=== PATIENT | male | born 1975 | race Two or more races ===

== ENCOUNTER 2025-03-26 18:14 | Emergency (ER) | payer MEDICAID, SELFPAY ==
[2025-03-26 18:19] VITALS: BP 112/73; PULSE 124; RESP 19; TEMP 37.1; O2SAT 95; BMI 31.9
[2025-03-26 18:22] VITALS: BP 109/84; PULSE 110; PULSE 120; RESP 18; O2SAT 97; BMI 28.2
--- NOTE | 2025-03-26 18:22 | PC.NURSE ---
C/O CHEST PAIN AND PALPITATIONS FOR 1 WEEK
--- NOTE | 2025-03-26 18:28 | EKG_ITS ---
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
--- NOTE | 2025-03-26 18:44 | EDNOTE_ITS ---
ED Chest Pain RME/HPI General Chief Complaint: Chest Pain Stated Complaint: CHEST PAIN/PALPITATIONS FOR 1 WEEK Time Seen by Provider: 03/26/25 18:43 Arrival date/time: 03/26/25 18:14 RME / HPI RME / HPI narrative: Dr. Espinosa?s Main ED Evaluation: 49yo male with a history of DM, HTN, anxiety, depression BIBA presents to the ED for complaints of chest pain and palpitations. Patient was seen at his PCP's office this afternoon and was sent over due to his heart rate being elevated at 145. Patient complains of left chest tightness, feeling clammy, lightheaded, and having a headache. Patient denies any shortness of breath, N/V, or any other associated symptoms. Related Data Allergies Allergy/AdvReac Type Severity Reaction Status Date / Time ibuprofen (From Motrin) Allergy Severe Rash Verified 03/26/25 18:36 Review of Systems Review of Systems Systems Reviewed: All systems reviewed, normal except as documented Past Medical History Past Medical History CARDIAC: Positive Angina, Hypercholesterolemia and Hypertension; Negative Congestive Heart Failure RESPIRATORY: Negative Chronic Obstructive Pulmonary Disease (COPD) GENITOURINARY: Negative Renal Disease ENDOCRINE: Positive Diabetes Mellitus Type 2; Negative Diabetes Mellitus Type 1 PSYCHO/SOCIAL: Positive Anxiety Social History SMOKING STATUS: Never smoker ED Exam Narrative Physical exam: GENERAL APPEARANCE: alert and oriented x 4, well-developed, well-nourished, no acute distress VITALS: All vitals were reviewed and the pulse ox is 97% on room air, which is normal according to my interpretation. HEENT: Normocephalic, atraumatic; pupils equal, round, reactive to light; EOMI; mucous membranes pink, moist; oropharynx clear NECK: Supple LUNGS: CTABL; no wheezes, no rales, no rhonchi HEART: Tachycardic, regular rhythm; normal S1, S2; no murmurs ABDOMEN: non distended; normal BS; soft, no tenderness, no guarding, no rebound; no masses, no organomegaly, no hernia BACK: no CVA tenderness EXTREMITIES: atraumatic; no edema NEUROLOGIC: awake; alert and oriented x4; cranial nerves II-XII grossly intact; no focal sensory or motor deficits PSYCHIATRIC: anxious mood and affect SKIN: warm, dry, normal color; no rashes Course Course Course Narrative: CXR is ordered for determining the etiology of chest pain. 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 NOW Care 03/26/25 19:03 Active EKG (ED ONLY) *Do not use* NOW Care 03/26/25 18:28 Completed EKG (ED ONLY) *Do not use* NOW Care 03/26/25 21:26 Completed EKG (ED Only) Stat Exams 03/26/25 18:28 Draft EKG (ED Only) Stat Exams 03/26/25 21:26 Draft XR chest 1V portable Stat Exams 03/26/25 19:03 Completed B-Type Natriuretic Peptide Stat Lab 03/26/25 19:13 Completed CBC Stat Lab 03/26/25 19:13 Completed Comprehensive Metabolic Panel Stat Lab 03/26/25 19:13 Completed Drug Screen,Urine Stat Lab 03/26/25 20:11 Completed Lipase Stat Lab 03/26/25 19:13 Completed Magnesium Stat Lab 03/26/25 19:13 Completed Partial Thromboplastin Time Stat Lab 03/26/25 19:13 Completed Prothrombin Time with INR Stat Lab 03/26/25 19:13 Completed Troponin I Stat Lab 03/26/25 19:13 Completed Troponin I Stat Lab 03/26/25 22:43 Completed UA, C/S IF [Urinalysis, C/S if Indicated] Stat Lab 03/26/25 20:11 Completed Sodium Chloride 0.9% 1000 ml [Ns] 1,000 ml Med 03/26/25 20:19 Discontinued IV 999 mls/hr Sodium Chloride 0.9% 1000 ml [Ns] 1,000 ml Med 03/26/25 20:19 Discontinued IV 999 mls/hr Vital Signs Vital signs: Vital Signs Temperature 98.8 F 03/26/25 18:19 Pulse Rate 124 H 03/26/25 18:19 Respiratory Rate 19 03/26/25 18:19 Blood Pressure 112/73 03/26/25 18:19 Pulse Oximetry (%) 95 03/26/25 18:19 Oxygen Delivery Method Room Air 03/26/25 18:19 Chest Pain MDM Narrative MDM Narrative:: Scribe Attestation: 03/26/25 - Debbi Chavez am scribing for and in the presence of Dr. Espinosa. Patient data External records reviewed:: [facility] previous records (Per chart review, patient has no previous ED visits or admissions to this facility.) and EMS form Clinical information provided by:: patient Social determinants that could affect healthcare access:: mental health Patient has the following chronic illnesses:: DM, HTN, anxiety, depression How is presenting disease/condition affected by chronic disease/condition?: exacerbated by Evaluation data The following diagnostics were reviewed and interpreted by me:: lab results, radiology exam(s) and EKG tracing(s) Lab and/or radiology exams considered but not ordered:: none Interpretation Summary: WBC 12.5, Hgb 1739, Hct 51.0, Creatinine 1.4, Mg normal, Troponin normal, BNP normal, UA unremarkable, UDS negative. Repeat Troponin normal. EKG done at 1829, sinus tachycardia, rate of 112, normal intervals, normal axis, Q waves in lead III and avF, no STEMI, according to my interpretation. Repeat EKG done at 2130, NSR, rate of 88, normal intervals, normal axis, Q waves in lead III and avF, no STEMI, according to my interpretation. [facility] Report Signed Patient: SEAN ROACH Record#: [id number] Birthdate: 1975 Age/Sex: 49 / M Location: [facility] Attending Dr: Ordering Physician: Nicole Espinosa MD Date of Service: 03/26/25 Procedure(s): XR chest 1V portable Accession Number(s): [id number] cc: Keaton Santana MD; NO PRIMARY/FAMILY,PHYSICIAN; Nicole Espinosa MD~ Examination: AP chest single view TECHNIQUE: AP portable sitting chest single view Date and time: March 26, 2025, 1920 hours INDICATIONS: Suggesting today. FINDINGS: Normal heart size The lungs are clear. The osseous structures are intact IMPRESSION: No active disease Dictated By: Keaton Santana MD Signed By: <Electronically signed by Keaton Santana MD in OV> 03/26/252113 Medications / Prescriptions Medications or Prescriptions considered but not ordered:: none Medication administrations:: Medication Administration History Discontinued Medications Sodium Chloride (Ns) 1,000 mls @ 999 mls/hr IV .Q1H1M ONE Stop: 03/26/25 21:19 Last Infusion: 03/26/25 22:01 Dose: Infused Documented By: Admin: 03/26/25 20:25 Dose: 999 mls/hr Documented By: ANDERSON Sodium Chloride (Ns) 1,000 mls @ 999 mls/hr IV .Q1H1M ONE Stop: 03/26/25 21:19 Last Infusion: 03/26/25 22:02 Dose: Infused Documented By: Admin: 03/26/25 20:41 Dose: 999 mls/hr Documented By: ANDERSON see above Consultations Consultation(s) initiated? (list below): No Diagnosis Chest Pain Differential Diagnosis: other (dehydration, sinus tachycardia, anxiety, medication side effect, arrhythmia) Most likely diagnosis given after review of the tests above:: see clinical impression below Admission Indicated Admission indicated?: not indicated Explain why admission is indicated or not indicated:: With significant improvement and no condition needing emergent intervention, there was no indication for admission. Admission Request Was there a request for admission?: No Disposition Plan Disposition Plan: Discharge Discharge Attestation Discharge Attestation: The patient and all family members were given an opportunity to ask questions and understood the discharge instructions. Discharge instructions specifically effects, indications for sooner follow up or return to the emergency department, and the expected course of current diagnosis. Patient condition: Stable Discharge Plan Prescriptions/Referrals Referrals: No Primary/Family,Physician [Primary Care Provider] - In 1 week Problem List Clinical Impression: Dehydration, mild, Sinus tachycardia Patient/Caregiver Discharge Instructions Education Materials: Understanding Tachycardia, ED Dehydration (Adult) Print Language: Luxem[place]ish
--- NOTE | 2025-03-26 19:03 | XR_ITS ---
Examination: AP chest single view TECHNIQUE: AP portable sitting chest single view Date and time: March 26, 2025, 1920 hours INDICATIONS: Suggesting today. FINDINGS: Normal heart size The lungs are clear. The osseous structures are intact IMPRESSION: No active disease
[2025-03-26 19:23] LABS: Basophils # (Auto) 0.1 Thou/mm3 (0.0-0.2); Basophils % (Auto) 1 % (0-2.5); Eosinophils # (Auto) 0.1 Thou/mm3 (0.0-0.5); Eosinophils % (Auto) 1 % (0-10); Hematocrit 51.0 % (41.0-53.0); Hemoglobin 17.9 g/dL (13.5-16.0); Immature Granulocytes Auto 0.09 Thou/mm3 (0.00-0.00); Lymphocytes # (Auto) 3.3 Thou/mm3 (1.0-4.8); Lymphocytes % (Auto) 26 % (10-50); Mean Corpuscular HGB Conc 35.1 g/dl (31.0-37.0); Mean Corpuscular Hemoglobin 30.0 pg (25.0-35.0); Mean Corpuscular Volume 86 fL (80-100); Monocytes # (Auto) 1.1 Thou/mm3 (0.0-0.8); Monocytes % (Auto) 9 % (0-12); Neutrophils # (Auto) 7.9 Thou/mm3 (1.8-7.7); Neutrophils % (Auto) 63 % (37-80); Nucleated Red Blood Cell # 0.00 Thou/mm3 (0.00-0.00); Nucleated Red Blood Cell % 0 /100 WBC (0); Platelet Count 314 Thou/mm3 (140-440); RDW Standard Deviation 39.6 fL (35.1-43.9); Red Blood Count 5.96 Miln/mm3 (4.50-5.90); White Blood Count 12.5 Thou/mm3 (3.8-10.6)
[2025-03-26 19:40] LABS: INR 1.0 (0.9-1.3); Partial Thromboplastin Time 26.1 Seconds (22.0-36.0); Prothrombin Time 11.0 Seconds (9.0-12.2)
[2025-03-26 19:45] LABS: Alanine Aminotransferase 58 U/L (10-49); Albumin, Serum 4.4 gm/dL (3.5-5.0); Albumin/Globulin Ratio 1.6 (1.2-2.2); Alkaline Phosphatase 94 U/L (46-116); Anion Gap 9 (7-16); Aspartate Amino Transferase 24 U/L (0-34); BUN/Creatinine Ratio 12 Ratio (12-20); Bilirubin,Total 0.6 mg/dL (0.3-1.2); Blood Urea Nitrogen 17 mg/dL (9-23); Calcium 9.9 mg/dL (8.3-10.6); Calcium (Corrected) 9.9 mg/dL (8.5-10.1); Carbon Dioxide 30.6 mMol/L (20.0-31.0); Chloride 101 mMol/L (98-107); Creatinine (Component) 1.4 mg/dL (0.6-1.3); Estimated Creatinine Clearance 76.6 mL/min (>60); Globulin 2.8 gm/dL (2.3-3.5); Glucose 119 mg/dL (74-106); Lipase 34 U/L (12-53); Magnesium 1.7 mg/dL (1.6-2.6); Osmolality,Calculated 283 (275-295); Potassium 4.2 mMol/L (3.4-5.1); Sodium 141 mMol/L (136-145); Total Protein 7.2 gm/dL (5.7-8.2); Troponin I < 0.020 ng/mL (0.0-0.045); eGFR > 60 See Note
[2025-03-26 20:02] LABS: B-Type Natriuretic Peptide < 20 pg/mL (0-100)
[2025-03-26 20:16] LABS: Collection Type, Urine Clean Catch
[2025-03-26 20:20] LABS: Bilirubin,Urine Negative (Negative); Blood,Urine Negative (Negative); Clarity,Urine Clear (Clear/Hazy); Color,Urine Yellow (Lt Yel-Yel); Culture Indicated,Urine Not Indicated; Glucose, Urine Negative (Negative); Ketones,Urine Negative (Negative); Leukocyte Esterase,Urine Negative (Negative); Nitrite,Urine Negative (Negative); PH,Urine 6.5 (5.0-7.0); Protein,Urine Trace (Neg - Trace); RBC,Urine 1 /hpf (0-3); Specific Gravity,Urine 1.029 (1.001-1.035); Squamous Epithelial Cell,Urine < 1 /hpf (0-5); Urobilinogen,Urine Negative mg/dL (0.0-1.0); WBC,Urine < 1 /hpf (0-5)
[2025-03-26] MEDS: SODIUM CHLORIDE 0.9% 1000 ML 1,000 ML 999 ML IV ×2 (20:25→20:41)
[2025-03-26 20:28] LABS: Amphetamine/Methamp Scrn,U Negative (Negative); Barbiturate Screen,Urine Negative (Negative); Benzodiazepines Screen,Urine Negative (Negative); Benzoylecgonine Screen, Ur Negative (Negative); Fentanyl Screen,Urine Negative (Negative); Opiate Screen,Urine Negative (Negative); THC Screen,Urine Negative (Negative)
--- NOTE | 2025-03-26 21:26 | EKG_ITS ---
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
[2025-03-26 23:14] LABS: Troponin I < 0.002 ng/mL (0.0-0.045)
[2025-03-26 23:23] VITALS: BP 130/89; PULSE 86; RESP 16; TEMP 37.2; O2SAT 98
== END 2025-03-26 23:24 | disposition home or self-care (01) ==
PROVIDERS: Emergency Provider Emergency Medicine
DX: E86.0 Dehydration (principal); R00.0 Tachycardia, unspecified; E78.00 Pure hypercholesterolemia, unspecified; I10 Essential (primary) hypertension
CPT/HCPCS: 36415; 71045; 80053; 80307; 81001; 83690; 83735; 83880; 84484; 85025; 85610; 85730; 93005; 96360; 96361; 99284; J7030